=== PATIENT | male | born 1985 | race Two or more races ===

== ENCOUNTER 2023-11-05 01:13 | Emergency (ER) | payer OTHER ==
[~2023-11-05] VITALS: Ht 177.8 cm; Wt 81.6 kg
[2023-11-05] MEDS ORDERED: ACID REDUCER20 M1 PO (01:41)
[2023-11-05] MEDS ORDERED: RINGERS SOLUTION,LACTATED 500 ML IV STA (02:15)
[2023-11-05] MEDS ORDERED: KETOROLAC TROMETHAMINE 30 MG VIAL IV STA (02:15)
[2023-11-05] MEDS ORDERED: MEPERIDINE HCL/PF 50 MG/ML VIAL IM STA (02:16)
[2023-11-05] MEDS ORDERED: PROMETHAZINE HCL 50 MG/ML AMPUL IM STA (02:16)
[2023-11-05] MEDS ORDERED: TAMSULOSIN HCL 0.4 MG CAP PO STA (02:17)
[2023-11-05] MEDS ORDERED: HYOSCYAMINE SULFATE 0.125 MG TAB.SUBL SL STA (02:17)
[2023-11-05 03:09] LABS: PH,URINE 7.5 (5.0-8.0); URINE APPEARANCE Clear; URINE BACTERIA 23.9 uL (0.0-1933); URINE BILIRRUBIN Negative (NEGATIVE); URINE BLOOD Small; URINE COLOR Yellow; URINE EPITHELIAL CELLS 18.9 uL (0.0-38.8); URINE GLUCOSE Negative (NEGATIVE); URINE LEUKOCYTE Small; URINE NITRATE Negative; URINE PROTEIN Negative (NEGATIVE); URINE RBC 128.1 uL (0.0-20.8); URINE UROBILINOGEN 0.2 E.U./dl; URINE WBC 68.4 uL (0.0-23.2)
[2023-11-05 03:10] LABS: HEMATOCRIT 40.7 % (39.0-48.0); HEMOGLOBIN 14.2 g/dL (13-16.00); MEAN CELL VOLUME 83.8 fL (80.0-100.00); MEAN CORPUSCULAR HEMOGLOBIN 29.2 pg (27.00-32.0); MEAN CORPUSCULAR HGB CONC 34.9 g/dl (32.0-36.0); PLATELET COUNT 275 K/uL (150-450); RED BLOOD COUNT 4.86 M/uL (4.00-6.00); RED CELL DISTRIBUTION WIDTH 12.7 % (11.5-14.5)
[2023-11-05 03:23] LABS: CALCIUM 9.8 mg/dL (8.5-10.1); CREATININE SERUM 1.17 mg/dL (0.70-1.30); GFR 70.15; POTASSIUM 3.49 mEq/L (3.5-5.1)
== END 2023-11-05 08:00 | disposition home or self-care (01) ==
LOC: ER 01:13
DX: N20.1 Calculus of ureter (principal)

== ENCOUNTER 2024-02-24 14:27 | Emergency (ER) | payer OTHER ==
[~2024-02-24] VITALS: Ht 177.8 cm; Wt 72.6 kg
[~2024-02-24 14:27] MED LIST: ACID REDUCER20 M1 PO
[2024-02-24] MEDS ORDERED: ONDANSETRON HCL 2 MG/ML VIAL IV ONE (18:15)
[2024-02-24] MEDS ORDERED: FAMOTIDINE/PF 20 MG/2 ML VIAL IV ONE (18:15)
[2024-02-24] MEDS ORDERED: 0.9 % SODIUM CHLORIDE 1,000 ML IV ONE (18:15)
[2024-02-24] MEDS ORDERED: FAMOTIDINE/PF 20 MG/2 ML VIAL ONE (18:41)
[2024-02-24] MEDS ORDERED: ONDANSETRON HCL 2 MG/ML VIAL ONE (18:41)
[2024-02-24 18:54] LABS: HEMATOCRIT 47.8 % (39.0-48.0); HEMOGLOBIN 16.4 g/dL (13-16.00); MEAN CELL VOLUME 84.2 fL (80.0-100.00); MEAN CORPUSCULAR HEMOGLOBIN 28.9 pg (27.00-32.0); MEAN CORPUSCULAR HGB CONC 34.4 g/dl (32.0-36.0); PLATELET COUNT 266 K/uL (150-450); RED BLOOD COUNT 5.68 M/uL (4.00-6.00); RED CELL DISTRIBUTION WIDTH 13.3 % (11.5-14.5)
[2024-02-24] MEDS ORDERED: LEXAPRO5 MG PO (18:55)
[2024-02-24 19:20] LABS: ALBUMIN 4.4 gm/dL (3.4-5.0); BILIRUBIN TOTAL 1.16 mg/dL (0.3-1.2); CALCIUM 10.3 mg/dL (8.5-10.1); CREATININE SERUM 0.96 mg/dL (0.70-1.30); GFR 88.13; GLOBULINA 4.1 G/DL (2.4-3.5); POTASSIUM 3.75 mEq/L (3.5-5.1); TOTAL PROTEIN 8.5 gm/dL (6.4-8.2)
[2024-02-24] MEDS ORDERED: PROMETHAZINE HCL 50 MG/ML AMPUL IM ONE ×2 (19:30→20:07)
== END 2024-02-24 20:44 | disposition left against medical advice (07) ==
LOC: ER 14:27
PROVIDERS: Nurse Practitioner Family
DX: R11.2 Nausea with vomiting, unspecified (principal); Z20.822 Contact with and (suspected) exposure to COVID-19